=== PATIENT | female | born 1950 | race Hispanic/Latino ===

== ENCOUNTER 2021-10-22 17:39 | Emergency (ER) | payer MEDICARE ==
[2021-10-22 19:39] LABS: #Basophils 0.1 10x3/uL (0.0-0.2); #Monocytes 0.5 10x3/uL (0.0-1.1); #Neutrophils 5.8 10x3/uL (1.5-8.4); %Basophils 0.9 % (0.0-2.0); %Eosinophils 0.3 % (0.0-6.0); %Lymphocytes 6.9 % (18.0-47.0); %Monocytes 7.3 % (0.0-10.0); %Neutrophils 84.2 % (40.0-75.0); Hemoglobin 13.9 g/dL (12.0-15.5); Mean Corpuscular HGB CONC 35.5 g/dL (32.0-36.0); Mean Corpuscular Hemoglobin 30.3 pg (27.0-33.0); Mean Corpuscular Volume 85.4 fl (81.6-98.3); Mean Platelet Volume 9.6 fl (7.4-10.4); Platelet Count 212 10x3/uL (150-450); RBC Distribution Width 14.2 % (11.5-14.5); Red Blood Cell (RBC) Count 4.59 10x6/uL (3.90-5.03); White Blood Cell (WBC) Count 6.8 10x3/uL (3.5-10.5)
[2021-10-22 19:54] LABS: ALT (SGPT) 56 U/L (8-55); AST (SGOT) 61 U/L (5-34); Albumin 4.3 g/dL (3.4-4.8); Alkaline Phosphatase 124 U/L (40-110); Anion Gap 15 mmol/L (10-20); BUN (Urea Nitrogen) 13 mg/dL (9.8-20.1); Bilirubin, Total 0.8 mg/dL (0.2-1.2); Calc. Creatinine Clearance 0 mL/min (70-130); Calcium 9.6 mg/dL (7.8-10.44); Carbon Dioxide 23 mmol/L (23-31); Chloride 103 mmol/L (98-107); Estimated GFR 68; Globulin 2.8 g/dL (2.4-3.5); Glucose 171 mg/dL (83-110); Lipase 35 U/L (8-78); Protein, Total 7.1 g/dL (5.8-8.1); Sodium 137 mmol/L (136-145)
[2021-10-22 20:26] LABS: Bilirubin Neg (Negative); Blood, Urine 150 (Negative); Clarity Clear (Clear); Glucose, Urine (Dipstick) Normal (Negative); Ketone, Urine 5 mg/dL (Negative); Leukocyte 100 (Negative); Nitrite Negative (Negative); Protein, Urine (Dipstick) 15 mg/dl (Neg-Trace); Specific Gravity, Urine 1.025 (1.002-1.036)
[2021-10-22 20:33] LABS: Bacteria/HPF 2+ HPF (None Seen)
[2021-10-22] MEDS ORDERED: Ketorolac Tromethamine 30 MG/ML VIAL ONE (20:40)
[2021-10-22] MEDS ORDERED: Ondansetron PF 4 MG/2 ML Vial ONE (20:40)
[2021-10-22] MEDS ORDERED: Fentanyl 100 MCG/2 ML VIAL ONE (20:41)
[2021-10-22 20:47] LABS: SARS-CoV-2 NAA Rapid Test DETECTED (NotDetected)
[2021-10-22] MEDS ORDERED: cefTRIAXone\\ROCEPHIN 1 GM VIAL ONE (21:41)
[2021-10-22 22:19] LABS: Lactic Acid 1.3 mmol/L (0.5-2.2)
== END 2021-10-22 22:02 | disposition home or self-care (01) ==
LOC: CSHERS 17:39
DX: U07.1 COVID-19 (principal); N39.0 Urinary tract infection, site not specified
CPT/HCPCS: 71045; 80053; 83605; 83690; 84484; 85025; 93005; U0002; 36415; 81003; 81015; 96361; 96374; 96375; J0696; J1885; J2405; J3010

== ENCOUNTER 2021-11-19 15:06 | Outpatient (CLI) | payer MEDICARE, OTHER | END 2021-11-19 15:07 | disposition home or self-care (01) | LOC: CSHMAMMO 15:06 | PROVIDERS: ATTEND Family Medicine | DX: Z12.31 Encounter for screening mammogram for malignant neoplasm of breast (principal) | CPT/HCPCS: 77063; 77067 ==

== ENCOUNTER 2023-04-07 12:27 | Emergency (ER) | payer OTHER ==
[2023-04-07 13:49] LABS: #Basophils 0.1 10x3/uL (0.0-0.2); #Eosinphils 0.1 10x3/uL (0.0-0.5); #Monocytes 0.4 10x3/uL (0.0-1.1); %Basophils 1.2 % (0.0-2.0); %Eosinophils 2.1 % (0.0-6.0); %Lymphocytes 28.2 % (18.0-47.0); %Monocytes 6.4 % (0.0-10.0); %Neutrophils 61.8 % (40.0-75.0); Hematocrit 43.8 % (34.9-44.5); Hemoglobin 14.9 g/dL (12.0-15.5); Mean Corpuscular Hemoglobin 29.7 pg (27.0-33.0); Mean Corpuscular Volume 87.4 fl (81.6-98.3); Mean Platelet Volume 10.5 fl (7.4-10.4); Platelet Count 300 10x3/uL (150-450); RBC Distribution Width 13.7 % (11.5-14.5); Red Blood Cell (RBC) Count 5.01 10x6/uL (3.90-5.03); White Blood Cell (WBC) Count 6.5 10x3/uL (3.5-10.5)
[2023-04-07 14:10] LABS: ALT (SGPT) 25 U/L (8-55); AST (SGOT) 21 U/L (5-34); Albumin 4.3 g/dL (3.4-4.8); Alkaline Phosphatase 122 U/L (40-110); Anion Gap 16 mmol/L (10-20); BUN (Urea Nitrogen) 13 mg/dL (9.8-20.1); Bilirubin, Total 0.7 mg/dL (0.2-1.2); Calc. Creatinine Clearance 0 mL/min (70-130); Calcium 9.4 mg/dL (7.8-10.44); Carbon Dioxide 21 mmol/L (23-31); Chloride 107 mmol/L (98-107); Estimated GFR 71; Globulin 2.2 g/dL (2.4-3.5); Glucose 187 mg/dL (83-110); Potassium 3.8 mmol/L (3.5-5.1); Protein, Total 6.5 g/dL (5.8-8.1); Sodium 140 mmol/L (136-145)
[2023-04-07 14:16] LABS: Troponin I Less than 0.010 ng/mL (< 0.028)
== END 2023-04-07 14:58 | disposition home or self-care (01) ==
LOC: CSHERS 12:27 → EEVIPCON 12:27 → CSHERS 14:58
DX: F41.9 Anxiety disorder, unspecified (principal); R07.9 Chest pain, unspecified; I10 Essential (primary) hypertension
CPT/HCPCS: 71045; 80053; 84484; 85025; 93005

== ENCOUNTER 2023-09-09 19:23 | Emergency (ER) | payer OTHER ==
[2023-09-09 20:14] LABS: Bilirubin Neg (Negative); Blood, Urine 10 (Negative); Clarity Clear (Clear); Glucose, Urine (Dipstick) Normal (Negative); Ketone, Urine Negative (Negative); Leukocyte Negative (Negative); Nitrite Negative (Negative); Protein, Urine (Dipstick) 100 mg/dl (Neg-Trace); Urobilinogen Normal mg/dL (Less than 2)
[2023-09-09 20:22] LABS: Amphetamine Not Detected (NotDetected); Barbiturates Screen Not Detected (NotDetected); Benzodiazepine Screen Not Detected (NotDetected); Cocaine Metabolite Screen Not Detected (NotDetected); Methadone Not Detected (NotDetected); Methamphetamine Not Detected (NotDetected); Opiate Screen Not Detected (NotDetected); Oxycodone Screen Not Detected (NotDetected); Phencyclidine (PCP) Not Detected (NotDetected); THC/Cannabinoid Screen Not Detected (NotDetected); Tricyclic Screen Not Detected (NotDetected)
[2023-09-09 20:25] LABS: #Basophils 0.07 10x3/uL (0.0-0.2); #Eosinphils 0.19 10x3/uL (0.0-0.5); #Monocytes 0.43 10x3/uL (0.0-1.1); #Neutrophils 4.15 10x3/uL (1.5-8.4); %Basophils 1.1 % (0.0-2.0); %Eosinophils 2.9 % (0.0-6.0); %Lymphocytes 24.8 % (18.0-47.0); %Monocytes 6.7 % (0.0-10.0); %Neutrophils 64.2 % (40.0-75.0); Hematocrit 42.4 % (34.9-44.5); Hemoglobin 14.9 g/dL (12.0-15.5); Mean Corpuscular HGB CONC 35.1 g/dL (32.0-36.0); Mean Corpuscular Hemoglobin 30.6 pg (27.0-33.0); Mean Corpuscular Volume 87.1 fl (81.6-98.3); Mean Platelet Volume 9.8 fl (7.4-10.4); Platelet Count 264 10x3/uL (150-450); RBC Distribution Width 13.5 % (11.5-14.5); Red Blood Cell (RBC) Count 4.87 10x6/uL (3.90-5.03); White Blood Cell (WBC) Count 6.5 10x3/uL (3.5-10.5)
[2023-09-09 20:29] LABS: Bacteria/HPF 1+ HPF (None Seen); CAUTI Indications for Culture Alt mental st,lethar; RBC/HPF 0-3 HPF (0-3); Squamous Epithelial 0-3 HPF (0-3); Urine Culture Reflex No No; WBC/HPF 0-3 HPF (0-3)
[2023-09-09 20:31] LABS: Acetaminophen Less than 10 mcg/mL (10.0-30.0); Alcohol Less than 10.0 mg/dL (Less than 10); Salicylate Less than 8.0 mg/dL (15.0-30.0)
[2023-09-09 20:32] LABS: ALT (SGPT) 27 U/L (8-55); AST (SGOT) 28 U/L (5-34); Albumin 4.2 g/dL (3.4-4.8); Alkaline Phosphatase 125 U/L (40-110); Anion Gap 14 mmol/L (10-20); BUN (Urea Nitrogen) 10 mg/dL (9.8-20.1); Bilirubin, Total 0.5 mg/dL (0.2-1.2); Calc. Creatinine Clearance 0 mL/min (70-130); Calcium 9.3 mg/dL (7.8-10.44); Carbon Dioxide 20 mmol/L (23-31); Chloride 109 mmol/L (98-107); Estimated GFR 81; Globulin 2.6 g/dL (2.4-3.5); Glucose 123 mg/dL (83-110); Potassium 3.6 mmol/L (3.5-5.1); Protein, Total 6.8 g/dL (5.8-8.1); Sodium 139 mmol/L (136-145)
[2023-09-09] MEDS ORDERED: Acetaminophen 500 MG TAB ONE (21:05)
[2023-09-09] MEDS ORDERED: Lorazepam 1 MG TAB ONE (21:05)
== END 2023-09-09 22:51 | disposition home or self-care (01) ==
LOC: CSHERS 19:23
DX: F41.1 Generalized anxiety disorder (principal); I10 Essential (primary) hypertension
CPT/HCPCS: 36415; 80053; 80306; 80307; 81001; 85025; 93005

== ENCOUNTER 2023-11-04 11:01 | Outpatient (CLI) | payer OTHER | END 2023-11-04 11:02 | disposition home or self-care (01) | LOC: CSHMAMMO 11:01 | PROVIDERS: ATTEND Family Medicine | DX: Z12.31 Encounter for screening mammogram for malignant neoplasm of breast (principal); Z13.820 Encounter for screening for osteoporosis; M81.0 Age-related osteoporosis without current pathological fracture; M85.852 Other specified disorders of bone density and structure, left thigh; Z78.0 Asymptomatic menopausal state | CPT/HCPCS: 77063; 77067; 77080 ==